=== PATIENT | female | born 1965 | race Caucasian/White ===

== ENCOUNTER → 2016-10-10 | Outpatient (CLI) | payer BC ==
--- NOTE | 2016-10-10 16:23 | RAD ---
Pelvic ultrasound, 10/10/2016: History: Cramping and discomfort Transabdominal and transvaginal scans were obtained. The uterus is enlarged measuring 13.6 x 7.6 x 5.2 cm. There are multiple nabothian cysts. There is an echogenic mass with posterior acoustic shadowing within the left side of the uterus, compatible with a calcified uterine fibroid. It measures approximately 6.4 cm in greatest dimension. It measured 7 mm on the 01/31/2008 study. The central uterine echo complex is best seen superiorly on the transabdominal scans. It measures 10-11 mm. The ovaries are within normal limits in size. No adnexal mass is seen. There is a trace amount of free fluid in the pelvis. This amount of fluid can be on a physiologic basis. IMPRESSION: 1. Stable left uterine mass compatible with a fibroid. 2. No new pelvic abnormality is detected.
== END | disposition home or self-care (01) ==
LOC: US 13:50
PROVIDERS: ATTEND Specialist
DX: N88.8 Other specified noninflammatory disorders of cervix uteri (principal)
CPT/HCPCS: 76830; 76856